=== PATIENT | male | born 1990 | race African-American/Black ===

== ENCOUNTER → 2024-10-09 | Emergency (ER) | payer SELFPAY ==
[~2024-10-09] VITALS: Ht 190.5 cm; Wt 113.4 kg
[~2024-10-09] MED LIST: FAMO20TA80 PO; FAMOTIDINE/PF INJ 20 MG/2 ML VIAL IV ONE; ONDANSETRON HCL/PF 4 MG/2 ML VIAL ONE
[2024-10-09] MEDS: ONDANSETRON HCL/PF 4 MG/2 ML VIAL IVP ONE (17:00)
[2024-10-09 17:19] LABS: BASOPHILS % (AUTO) 0.1 % (0.0-2.0); EOSINOPHILS % (AUTO) 0.3 % (0.0-6.0); HEMATOCRIT 44 % (39-51); HEMOGLOBIN 14.4 g/dL (13.5-17.5); LYMPHOCYTES # (AUTO) 0.8 K/uL (0.8-4.8); LYMPHOCYTES % (AUTO) 9.3 % (20.0-44.0); MEAN CORPUSCULAR HEMOGLOBIN 29 PG (26.0-33.0); MEAN CORPUSCULAR HGB CONC 33 g/dl (31.0-36.0); MEAN CORPUSCULAR VOLUME 90 fL (80-96); MONOCYTES # (AUTO) 0.7 K/uL (0.1-1.30); MONOCYTES % (AUTO) 8.1 % (2.0-12.0); NEUTROPHILS # (AUTO) 7.4 K/uL (1.8-8.9); NEUTROPHILS % (AUTO) 82.2 % (43.0-81.0); PLATELET COUNT (AUTO) 151 K/uL (150-450); RED CELL DISTRIBUTION WIDTH 13.7 % (11.5-15.0); WHITE BLOOD COUNT (AUTO) 9.1 K/uL (4.3-11.0)
[2024-10-09 17:26] LABS: CALCIUM, SERUM 9.1 mg/dL (8.5-10.1); CREATININE 1.2 mg/dL (0.6-1.3); POTASSIUM 3.7 mmol/L (3.5-5.1)
[2024-10-09 17:32] LABS: ALBUMIN 3.7 g/dL (3.4-5.0); BILIRUBIN,DIRECT 0.2 mg/dL (0.0-0.2); BILIRUBIN,TOTAL 0.8 mg/dL (0.2-1.0); TOTAL PROTEIN, SERUM 8.1 g/dL (6.4-8.2)
[2024-10-09] MEDS: IV NS 0.9% 1,000 ML BAG IV ONE (17:45)
[2024-10-09 18:59] VITALS: BP 129/69; TEMP 98.2; O2SAT 99
[2024-10-09 18:59] LABS: APPEARANCE,URINE CLEAR (CLEAR); BILIRUBIN,URINE 1+ (NEGATIVE); BLOOD, URINE NEGATIVE Ery/uL (NEGATIVE); COLOR,URINE YELLOW (YELLOW); KETONES,URINE NEGATIVE (NEGATIVE); LEUKOCYTE ESTERASE ,URINE NEGATIVE (NEGATIVE); NITRITE, URINE NEGATIVE (NEGATIVE); PROTEIN,URINE TRACE mg/dl (NEGATIVE); UGLUCOSE NEGATIVE (NEGATIVE); UROBILINOGEN,URINE 0.2 EU/dL (0.2)
[2024-10-09] MEDS: FAMOTIDINE/PF INJ 20 MG/2 ML VIAL IV ONE (19:00)
[2024-10-09 19:08] LABS: BACTERIA,URINE Few /HPF (None Seen); MUCUS,URINE Moderate /LPF (None Seen); SQUAMOUS EPITHELIAL CELL,UR Rare /HPF (None Seen)
[2024-10-09 19:09] LABS: RBC,URINE 0-2 /HPF (0-2)
[2024-10-09 19:10] LABS: ADD URINE CULTURE NO; WBC,URINE 0-2 /HPF (0-3)
[2024-10-09 19:11] LABS: CALCIUM OXALATE CRYSTALS,UR Moderate /HPF (None Seen); HYALINE CASTS, URINE Rare /LPF (None Seen)
== END | disposition home or self-care (01) ==
LOC: ER 16:44
DX: R10.13 Epigastric pain (principal); F10.129 Alcohol abuse with intoxication, unspecified; F17.210 Nicotine dependence, cigarettes, uncomplicated; Z59.00 Homelessness unspecified
CPT/HCPCS: 99283; 96374; 96361; 85025; 80048; 83690; 80076; 81001; 36415; 80320; J2405; J7030; A4223; G0480; J1308